=== PATIENT | female | born 1935 | race Caucasian/White ===

== ENCOUNTER 2019-03-06 15:11 | Emergency (ER) | payer MEDICARE, BC ==
--- NOTE | 2019-03-06 15:57 | EDM.PDOC ---
ED HPI GENERAL MEDICAL PROBLEM - General Chief Complaint: Cardiovascular Problem Stated Complaint: HIGH BLOOD PRESSURE Time Seen by Provider: 03/06/19 15:30 Source of Information: Reports: Patient, Family, Old Records History Limitations: Reports: No Limitations - History of Present Illness INITIAL COMMENTS - FREE TEXT/NARRATIVE: María comes into [facility] ED from the Clinic for managment of her hypertension and recent hx of precordial chest pain yesterday. She experienced chest pain at 1700 hrs yesterday at home, characterized as a squeezing or pressure sensation. There was no palpitations, SOB, diaphoresis, or malaise. Sxs persisted over the next 5 hours before she retired, but still slept poorly last pm. She seemed better today, and did go out for coffee with a friend. She subsequently saw her PCP in the Clinic for follow up, noting BP sys 190's, nunn 100's in spite of antihypertensive maintenance meds (bumex prn, verapamil, losartan, apresoline 3/ da). - Related Data Allergies Allergy/AdvReac Type Severity Reaction Status Date / Time cyclobenzaprine Allergy Other Verified 03/06/19 16:19 [From Flexeril] levofloxacin [From Levaquin] Allergy Other Verified 03/06/19 16:19 Quinolones Allergy Other Verified 03/06/19 16:19 Home Meds: Home Meds ALPRAZolam [Alprazolam] 0.25 mg PO Q8HR PRN 03/06/19 [History] Acetaminophen [Acetaminophen Extra Strength] 500 mg PO Q6HR PRN 03/06/19 [ History] Amiodarone [Cordarone] 200 mg PO DAILY 03/06/19 [History] Bumetanide 1 mg PO DAILY PRN 03/06/19 [History] Docusate Sodium [Colace] 100 mg PO BID PRN 03/06/19 [History] Ergocalciferol (Vitamin D2) [Vitamin D2] 2,000 mg PO DAILY 03/06/19 [History] Losartan Potassium [Cozaar] 100 mg PO DAILY 03/06/19 [History] Multivitamins/Minerals [Vitamins and Minerals] 1 each PO DAILY 03/06/19 [History ] Potassium Chloride [K-Tab ER] 20 meq PO DAILY 03/06/19 [History] Verapamil HCl 360 mg PO DAILY 03/06/19 [History] Vitamin E 100 unit PO DAILY 03/06/19 [History] atorvaSTATin [Lipitor] 20 mg PO BEDTIME 03/06/19 [History] calcitrioL [Calcitriol] 1 tab PO DAILY 03/06/19 [History] hydrALAZINE [Apresoline] 50 mg PO TID 03/06/19 [History] traMADol [Ultram] 50 mg PO Q8HR PRN 03/06/19 [History] Past Medical History Cardiovascular History: Reports: Afib, Cardiomyopathy, Hypertension, Other (See Below) (aortic stenosis,) ED ROS GENERAL - Review of Systems Review Of Systems: See Below Constitutional: Reports: No Symptoms HEENT: Reports: No Symptoms Respiratory: Reports: No Symptoms Cardiovascular: Reports: Chest Pain, Blood Pressure Problem, Edema Endocrine: Reports: No Symptoms GI/Abdominal: Reports: No Symptoms : Reports: No Symptoms Musculoskeletal: Reports: No Symptoms Skin: Reports: No Symptoms Neurological: Reports: No Symptoms Psychiatric: Reports: Anxiety Hematologic/Lymphatic: Reports: No Symptoms Immunologic: Reports: No Symptoms ED EXAM, GENERAL - Physical Exam Exam: See Below Exam Limited By: No Limitations General Appearance: Alert, WD/WN, No Apparent Distress, Anxious Eye Exam: Bilateral Eye: EOMI, Normal Inspection, PERRL Ears: Normal External Exam Nose: Normal Inspection, Normal Mucosa, No Blood Throat/Mouth: Normal Inspection, Normal Lips, Normal Gums, Normal Oropharynx, Normal Voice Head: Normocephalic Neck: Normal Inspection, Supple, Non-Tender, Full Range of Motion Respiratory/Chest: No Respiratory Distress, Lungs Clear, Normal Breath Sounds, No Accessory Muscle Use, Chest Non-Tender Cardiovascular: Normal Peripheral Pulses, Regular Rate, Rhythm, No Gallop, No JVD, Systolic Murmur, Other GI/Abdominal: Normal Bowel Sounds, Soft, Non-Tender, No Organomegaly, No Distention, No Mass (Female) Exam: Deferred Rectal (Female) Exam: Deferred Back Exam: Normal Inspection Extremities: Pedal Edema (L>R), Other Neurological: Alert, Oriented, CN II-XII Intact, No Motor/Sensory Deficits Psychiatric: Normal Affect, Anxious Skin Exam: Warm, Dry, Intact, Normal Color, No Rash Lymphatic: No Adenopathy Course - Vital Signs Text/Narrative:: Following assessment, María stayed on the monitor over the next 2 hours, and BPs improved 155/85. Her screening labs including CBC, CMP, and Troponin were normal or baseline. The BNP 942 was elevated, no available level for comparison. The chest x ray and ekg were also unchanged from baseline. Dr Sepulveda had prescribed Toprol XL 50 mg qd to start today, and a dose was given prior to discharge. - Orders/Labs/Meds Orders: Active Orders 24 hr Category Date Time Status Chest 1V Frontal [CR] Stat Exams 03/06/19 15:44 Ordered Metoprolol Succinate [Toprol XL] Med 03/06/19 16:54 Once 50 mg PO ONETIME ONE Labs: Laboratory Tests 03/06/19 03/06/19 03/06/19 Range/Units 16:04 16:04 16:04 WBC 7.4 (4.5-12.0) X10-3/uL RBC 3.87 (3.23-5.20) x10(6)uL Hgb 12.3 (11.5-15.5) g/dL Hct 36.9 (30.0-51.3) % MCV 95.2 (80-96) fL MCH 31.8 (27.7-33.6) pg MCHC 33.3 (32.2-35.4) g/dL RDW 13.2 (11.5-15.5) % Plt Count 325 (125-369) X10(3)uL MPV 7.4 (7.4-10.4) fL Neut % (Auto) 63.7 (46-82) % Lymph % (Auto) 24.5 (13-37) % [place] % (Auto) 10.1 (4-12) % Eos % (Auto) 1 (1.0-5.0) % Baso % (Auto) 1 (0-2) % Neut # (Auto) 4.8 (1.6-8.3) # Lymph # (Auto) 1.8 (0.6-5.0) # [place] # (Auto) 0.7 (0.0-1.3) # Eos # (Auto) 0.1 (0.0-0.8) # Baso # (Auto) 0.0 (0.0-0.2) # D-Dimer, Quantitative 0.56 (0.0-0.59) mg/LFEU Sodium 142 (135-145) mmol/L Potassium 4.5 (3.5-5.3) mmol/L Chloride 104 (100-110) mmol/L Carbon Dioxide 28 (21-32) mmol/L BUN 23 H (7-18) mg/dL Creatinine 1.4 H (0.55-1.02) mg/dL Est Cr Clr Drug Dosing TNP Estimated GFR (MDRD) 36 L (>60) BUN/Creatinine Ratio 16.4 (9-20) Glucose 102 (80-116) mg/dL Calcium 9.6 (8.6-10.2) mg/dL Total Bilirubin 0.8 (0.1-1.3) mg/dL AST 39 H (5-25) IU/L ALT 46 H (12-36) U/L Alkaline Phosphatase 79 (56-112) IU/L Troponin I (<0.017-0.056) ng/mL NT-Pro-B Natriuret Pep (<=450) pg/mL Total Protein 7.7 (6.0-8.0) g/dL Albumin 4.2 (3.2-4.6) g/dL Globulin 3.5 g/dL Albumin/Globulin Ratio 1.2 //20 Range/Units 16:04 WBC (4.5-12.0) X10-3/uL RBC (3.23-5.20) x10(6)uL Hgb (11.5-15.5) g/dL Hct (30.0-51.3) % MCV (80-96) fL MCH (27.7-33.6) pg MCHC (32.2-35.4) g/dL RDW (11.5-15.5) % Plt Count (125-369) X10(3)uL MPV (7.4-10.4) fL Neut % (Auto) (46-82) % Lymph % (Auto) (13-37) % [place] % (Auto) (4-12) % Eos % (Auto) (1.0-5.0) % Baso % (Auto) (0-2) % Neut # (Auto) (1.6-8.3) # Lymph # (Auto) (0.6-5.0) # [place] # (Auto) (0.0-1.3) # Eos # (Auto) (0.0-0.8) # Baso # (Auto) (0.0-0.2) # D-Dimer, Quantitative (0.0-0.59) mg/LFEU Sodium (135-145) mmol/L Potassium (3.5-5.3) mmol/L Chloride (100-110) mmol/L Carbon Dioxide (21-32) mmol/L BUN (7-18) mg/dL Creatinine (0.55-1.02) mg/dL Est Cr Clr Drug Dosing Estimated GFR (MDRD) (>60) BUN/Creatinine Ratio (9-20) Glucose (80-116) mg/dL Calcium (8.6-10.2) mg/dL Total Bilirubin (0.1-1.3) mg/dL AST (5-25) IU/L ALT (12-36) U/L Alkaline Phosphatase (56-112) IU/L Troponin I < 0.017 L (<0.017-0.056) ng/mL NT-Pro-B Natriuret Pep 942 H (<=450) pg/mL Total Protein (6.0-8.0) g/dL Albumin (3.2-4.6) g/dL Globulin g/dL Albumin/Globulin Ratio Departure - Departure Time of Disposition: 16:50 Disposition: Home, Self-Care 01 Condition: Fair Clinical Impression: Hypertensive heart disease Qualifiers: Heart failure presence: unspecified whether heart failure present Qualified Code(s): I11.9 - Hypertensive heart disease without heart failure Hypertension Qualifiers: Hypertension type: unspecified Qualified Code(s): I10 - Essential (primary) hypertension Referrals: PCP,None [Ordering Only Provider] - Forms: ED Department Discharge Sepsis Event Note - Focused Exam Date Exam was Performed: 03/06/19 Time Exam was Performed: 16:55 - Problem List & Annotations (1) Hypertension SNOMED Code(s): 26135800 Code(s): I10 - ESSENTIAL (PRIMARY) HYPERTENSION Status: Acute Current Visit: Yes Annotation/Comment:: Britton will continue current meds including Toprol XL 50 mg qd, and monitor BPs at home. Qualifiers: Hypertension type: unspecified Qualified Code(s): I10 - Essential (primary ) hypertension (2) Hypertensive heart disease SNOMED Code(s): 61998176 Code(s): I11.9 - HYPERTENSIVE HEART DISEASE WITHOUT HEART FAILURE Status: Acute Current Visit: Yes Annotation/Comment:: María will continue current managment. I suggested utilizing the Bumex twice weekly for CHF and suspected PH , and she will discuss with PCP next week. Qualifiers: Heart failure presence: unspecified whether heart failure present Qualified Code(s): I11.9 - Hypertensive heart disease without heart failure - Problem List Review Problem List Initiated/Reviewed/Updated: Yes - My Orders Last 24 Hours: My Active Orders 03/06/19 15:44 Chest 1V Frontal [CR] Stat 03/06/19 16:54 Metoprolol Succinate [Toprol XL] 50 mg PO ONETIME ONE - Assessment/Plan Last 24 Hours: My Active Orders 03/06/19 15:44 Chest 1V Frontal [CR] Stat 03/06/19 16:54 Metoprolol Succinate [Toprol XL] 50 mg PO ONETIME ONE Plan: Follow up with PCP.
[2019-03-06] MEDS ORDERED: Metoprolol Succinate 50 MG Tab.ER PO ONE (16:54)
== END 2019-03-06 17:15 | disposition home or self-care (01) ==
LOC: FB.ED 15:11
DX: I11.9 Hypertensive heart disease without heart failure (principal); Z79.899 Other long term (current) drug therapy; Z88.1 Allergy status to other antibiotic agents; Z88.8 Allergy status to other drugs, medicaments and biological substances
CPT/HCPCS: 36415; 80053; 83880; 84484; 85025; 85379; 99285; A9270; 93010; 99284